=== PATIENT | male | born 1960 | race Two or more races ===

== ENCOUNTER 2017-10-22 17:26 | Emergency (ER) | payer SELFPAY ==
[~2017-10-22] VITALS: Ht 170.2 cm; Wt 81.6 kg
[~2017-10-22 17:26] MED LIST: ATARAX25 MG ORAL; BENADRYL25 MG ORAL; NKM; RANITIDINE HCL150 MG ORAL
[2017-10-22 17:45] VITALS: BP 174/90
[2017-10-22] MEDS ORDERED: NKM (17:45)
[2017-10-22] MEDS ORDERED: Isovue-300 100ml vial INJ PRN (18:00)
[2017-10-22] MEDS ORDERED: Ketorolac 30mg Inj IV ONE (18:00)
[2017-10-22] MEDS ORDERED: Morphine Sulfate 4mg/ml Inj IVP ONE (18:00)
[2017-10-22 18:26] LABS: ANION GAP 11 mmol/L (5-15); BLOOD UREA NITROGEN 9 mg/dL (7-18); CALCIUM 9.1 MG/DL (8.5-10.1); CARBON DIOXIDE 25 MMOL/L (21-32); CHLORIDE 105 MMOL/L (98-107); POTASSIUM 3.2 MMOL/L (3.5-5.1); SODIUM 141 MMOL/L (136-145)
[2017-10-22 18:39] LABS: ALANINE AMINOTRANSFERASE 166 U/L (12-78); ALBUMIN 3.6 G/DL (3.4-5.0); ALBUMIN/GLOBULIN RATIO 0.7 (1.0-2.7); ALKALINE PHOSPHATASE 87 U/L (46-116); ASPARTATE AMINO TRANSFERASE 190 U/L (15-37); BILIRUBIN,TOTAL 2.1 MG/DL (0.2-1.0)
[2017-10-22 18:46] LABS: APPEARANCE,URINE CLEAR; BILIRUBIN, URINE NEGATIVE (NEGATIVE); COLOR,URINE YELLOW; GLUCOSE, URINE (UA) NEGATIVE (NEGATIVE); KETONES,URINE NEGATIVE (NEGATIVE); LEUKOCYTE ESTERASE ,URINE NEGATIVE (NEGATIVE); NITRITE,URINE NEGATIVE (NEGATIVE); PH,URINE 7 (4.5-8.0); PROTEIN,URINE NEGATIVE (NEGATIVE); UROBILINOGEN,URINE 1 MG/DL (0.0-1.0)
[2017-10-22 18:49] LABS: BASOPHILS % (AUTO) 1.7 % (0.0-2.0); EOSINOPHILS % (AUTO) 2.7 % (0.0-3.0); HEMATOCRIT 41.2 % (42.0-52.0); HEMOGLOBIN 15.1 G/DL (14.2-18.0); LYMPHOCYTES % (AUTO) 29.2 % (20.0-45.0); MEAN CORPUSCULAR VOLUME 88 FL (80-99); MONOCYTES % (AUTO) 10.9 % (1.0-10.0); NEUTROPHILS % (AUTO) 55.6 % (45.0-75.0); PLATELET COUNT 136 K/UL (150-450); RED BLOOD COUNT 4.69 M/UL (4.70-6.10); WHITE BLOOD COUNT 9.7 K/UL (4.8-10.8)
[2017-10-22 18:57] LABS: INR 1.3 (0.9-1.1)
--- NOTE | 2017-10-22 19:12 | Emergency Room Report ---
History of Present Illness General Chief Complaint: Pain Source: Family Member Present Illness HPI 56-year-old male presents ED complaining of pain. Started this morning. History of hernia to his groin but states that today pain is worse. Notes bulging. Pain is a 10 out of 10, sharp, nonradiating. Denies fevers or chills. Denies chest pain or shortness of breath. Denies nausea or vomiting. No other aggravating relieving factors. Denies any other associated symptoms Allergies: Coded Allergies: No Known Allergies (Unverified , 10/22/17) Patient History Past Medical History: psych hx, other - hernia Past Surgical History: none Pertinent Family History: none Social History: Denies: smoking, alcohol use, drug use Immunizations: UTD Reviewed Nursing Documentation: PMH: Agreed; PSxH: Agreed Nursing Documentation-PMH Past Medical History: No History, Except For Hx Cardiac Problems: No - alcohol and drug abuse Hx Hypertension: Yes Hx Pacemaker: No Hx Asthma: No Hx COPD: No Hx Diabetes: No Hx Cancer: No Hx Gastrointestinal Problems: Yes - Hernia Hx Dialysis: No History Of Psychiatric Problem: Yes - Anxiety Hx Neurological Problems: No Hx Cerebrovascular Accident: No Hx Seizures: No Review of Systems All Other Systems: negative except mentioned in HPI Physical Exam Vital Signs Date Time Temp Pulse Resp B/P (MAP) Pulse Ox O2 Delivery O2 Flow Rate FiO2 10/22/17 17:41 97.9 106 18 176/91 95 Room Air 97.9 Sp02 EP Interpretation: reviewed, normal General Appearance: alert, GCS 15, non-toxic, mild distress Head: normocephalic, atraumatic Eyes: bilateral eye normal inspection, bilateral eye PERRL ENT: hearing grossly normal, normal pharynx, no angioedema, normal voice Neck: full range of motion, supple/symm/no masses Respiratory: chest non-tender, lungs clear, normal breath sounds, speaking full sentences Cardiovascular #1: regular rate, rhythm, no edema Cardiovascular #2: 2+ carotid (R), 2+ carotid (L), 2+ radial (R), 2+ radial (L) , 2+ dorsalis pedis (R), 2+ dorsalis pedis (L) Gastrointestinal: normal bowel sounds, soft, non-distended, no guarding, no rebound, tenderness - R inguinal swelling. nonreducible Rectal: deferred Genitourinary: normal inspection, no CVA tenderness Musculoskeletal: back normal, gait/station normal, normal range of motion, non- tender Neurologic: alert, oriented x3, responsive, motor strength/tone normal, sensory intact, speech normal Psychiatric: judgement/insight normal, memory normal, mood/affect normal, no suicidal/homicidal ideation Reflexes: 3+ bicep (R), 3+ bicep (L), 3+ tricep (R), 3+ tricep (L), 3+ knee (R) , 3+ knee (L) Skin: normal color, no rash, warm/dry, well hydrated Lymphatic: no adenopathy Medical Decision Making Diagnostic Impression: Primary Impression: Inguinal hernia Qualified Codes: K40.91 - Unilateral inguinal hernia, without obstruction or gangrene, recurrent Additional Impression: Portal hypertension ER Course Hospital Course 56-year-old male presents to ED complaining of right inguinal swelling, pain Differential diagnosis includes- SBO, hernia, abscess Clinical course Patient placed on stretcher. After initial history and physical I ordered labs , IV fluids, pain medications and CT scan There is evidence of a right inguinal hernia. Patient placed in Trendelenburg position Labs - no leukocytosis, electrolytes ok, LFTs significant elevated CT scan shows R inguinal hernia with small bowel, no incarceration. also h/o portal hypertension and cirrhosis Discussed findings with surgery. Given that hernia is reducible there is no emergent indication for repair. Also given portal hypertension and cirrhosis patient is at high risk for adverse event during surgery. Patient will require medical optimization prior to elective surgery. I discussed these findings with the patient. Patient agrees to plan. I will provide him with referrals I feel this is a highly complex case requiring extensive working including EKG/ Rhythm strip, Xray/CT/US, Blood/urine lab work, repeat exams while in ED, and administration of strong opiates/narcotics for pain control, admission to hospital or close patient follow up. Diagnosis - inguinal hernia, portal hypertension Stable and discharged to home with Rx tramadol, ativan. Followup with PMD/ surgery. Return to ED if symptoms recur or worsen Labs Test 10/22/17 17:50 White Blood Count 9.7 K/UL (4.8-10.8) Red Blood Count 4.69 M/UL (4.70-6.10) Hemoglobin 15.1 G/DL (14.2-18.0) Hematocrit 41.2 % (42.0-52.0) Mean Corpuscular Volume 88 FL (80-99) Mean Corpuscular Hemoglobin 32.2 PG (27.0-31.0) Mean Corpuscular Hemoglobin Concent 36.7 G/DL (32.0-36.0) Red Cell Distribution Width 11.0 % (11.6-14.8) Platelet Count 136 K/UL (150-450) Mean Platelet Volume 9.0 FL (6.5-10.1) Neutrophils (%) (Auto) 55.6 % (45.0-75.0) Lymphocytes (%) (Auto) 29.2 % (20.0-45.0) Monocytes (%) (Auto) 10.9 % (1.0-10.0) Eosinophils (%) (Auto) 2.7 % (0.0-3.0) Basophils (%) (Auto) 1.7 % (0.0-2.0) Prothrombin Time 13.9 SEC (9.30-11.50) Prothromb Time International Ratio 1.3 (0.9-1.1) Activated Partial Thromboplast Time 30 SEC (23-33) Urine Color Yellow Urine Appearance Clear Urine pH 7 (4.5-8.0) Urine Specific Atkins 1.005 (1.005-1.035) Urine Protein Negative (NEGATIVE) Urine Glucose (UA) Negative (NEGATIVE) Urine Ketones Negative (NEGATIVE) Urine Occult Blood Negative (NEGATIVE) Urine Nitrite Negative (NEGATIVE) Urine Bilirubin Negative (NEGATIVE) Urine Urobilinogen 1 MG/DL (0.0-1.0) Urine Leukocyte Esterase Negative (NEGATIVE) Sodium Level 141 MMOL/L (136-145) Potassium Level 3.2 MMOL/L (3.5-5.1) Chloride Level 105 MMOL/L (98-107) Carbon Dioxide Level 25 MMOL/L (21-32) Anion Gap 11 mmol/L (5-15) Blood Urea Nitrogen 9 mg/dL (7-18) Creatinine 1.0 MG/DL (0.55-1.30) Estimat Glomerular Filtration Rate > 60 mL/min (>60) Glucose Level 97 MG/DL (74-106) Calcium Level 9.1 MG/DL (8.5-10.1) Total Bilirubin 2.1 MG/DL (0.2-1.0) Direct Bilirubin 1.0 MG/DL (0.0-0.3) Aspartate Amino Transf (AST/SGOT) 190 U/L (15-37) Alanine Aminotransferase (ALT/SGPT) 166 U/L (12-78) Alkaline Phosphatase 87 U/L (46-116) Total Protein 8.8 G/DL (6.4-8.2) Albumin 3.6 G/DL (3.4-5.0) Globulin 5.2 g/dL Albumin/Globulin Ratio 0.7 (1.0-2.7) Lipase 402 U/L (73-393) CT/MRI/US Diagnostic Results CT/MRI/US Diagnostic Results : Imaging Test Ordered: CT A/P Impression Cirrhosis with evidence of portal hypertension including splenomegaly and recanalized umbilical vein. Indirect right inguinal hernia containing distal small bowel. No obstruction. No clear strangulation Last Vital Signs Date Time Temp Pulse Resp B/P (MAP) Pulse Ox O2 Delivery O2 Flow Rate FiO2 10/22/17 18:35 97.9 10/22/17 17:45 111 14 174/90 96 Room Air Status: improved Disposition: HOME, SELF-CARE Condition: Stable Scripts Lorazepam* (ATIVAN*) 1 Mg Tablet 1 MG ORAL THREE TIMES A DAY, #20 TAB Prov: Bruce Magaña MD 10/22/17 Tramadol Hcl* (ULTRAM*) 50 Mg Tablet 50 MG ORAL Q6H PRN for For Pain, #20 TAB 0 Refills Prov: Bruce Magaña MD 10/22/17 Referrals: NOT CHOSEN IPA/,REFERRING (PCP) Bruce Magaña MD October 22, 2017 19:12
[2017-10-22 19:28] VITALS: BP 153/85
[2017-10-22] MEDS ORDERED: TRAMADOL HCL50 MG ORAL (20:15)
[2017-10-22] MEDS ORDERED: ATIVAN1 MG ORAL (20:15)
[2017-10-22 20:18] VITALS: BP 153/85
[2017-10-22] MEDS ORDERED: LORazepam 1mg tab ORAL ONE (20:30)
--- NOTE | 2017-10-23 09:29 | Diagnostic Imaging Report ---
Indication: Abdominal pain Technique: Continuous helical transaxial imaging of the abdomen and pelvis was obtained from the lung bases to the pubic symphysis during intravenous contrast administration. Coronal 2-D reformats were also obtained. Study obtained in a Siemens sensation [address] Automatic Exposure Control was utilized. Total Dose length Product (DLP): 780.[address] Dose Index Volume (CTDIvol): 12.81 mGy Comparison: None Findings: The lung bases are clear. There is nodularity of the liver, enlargement of the liver and spleen. The umbilical vein is recanalized. There are right renal cysts. There is no ascites. The appendix is normal. There are bilateral hernias. The left inguinal hernia contains fat. The right A1 hernia slightly larger in size contains bowel. Correlate for incarceration which is not excludable by imaging. There is no associated bowel obstruction or inflammation identified on this study. The gallbladder is distended. Small umbilical hernia containing fat noted. Aorta is mildly calcified. IMPRESSION: Chronic liver disease/cirrhosis with evidence of portal hypertension including splenomegaly, suggestion of portosystemic varices and recanalized umbilical vein. Atherosclerotic disease Bilateral renal cysts Normal appendix Bilateral inguinal hernias. Right inguinal hernia contains bowel. Correlate clinically for incarceration. [facility] has communicated the preliminary results to the Emergency Department. Their findings are largely concordant with this report. The CT scanner at [facility] is accredited by the [employer] and the scans are performed using dose optimization techniques as appropriate to a performed exam including Automatic Exposure control.
== END 2017-10-22 20:18 | disposition home or self-care (01) ==
LOC: EDBD → MERGE 19:00 → EMR 19:00
DX: K40.91 Unilateral inguinal hernia, without obstruction or gangrene, recurrent (principal); K76.6 Portal hypertension; I10 Essential (primary) hypertension; F41.9 Anxiety disorder, unspecified; K74.69 Other cirrhosis of liver
CPT/HCPCS: 36415; 74177; 80053; 81003; 82248; 83690; 85025; 85610; 85730; 86850; 86900; 86901; 96361; 96374; 96375; 99284; J1885; J2270; Q9967